=== PATIENT | male | born 1995 | race Two or more races ===

== ENCOUNTER 2025-05-20 03:11 | Emergency (ER) | payer BC, SELFPAY ==
[2025-05-20 03:23] VITALS: BP 130/73; BP 134/90; PULSE 71; PULSE 72; RESP 16; TEMP 36.2; O2SAT 96; O2SAT 99; BMI 29.0
[2025-05-20 03:44] VITALS: BP 121/74; PULSE 65
--- OUTSIDE RECORDS SUMMARY | 2025-05-20 03:58 | XMS_ITS | Clinical Summary ---
Author Organization [facility] Address [address] [place] [address] Care Team Providers Care Shovel Handle Assembler Name Role Phone Unavailable Primary Care Provider Unavailabl e Medications No known medications Active Problems No known active problems Immunizations Name Administration Dates Next Due Tdap 12/15/2023 Social History Tobacco Use Types Packs/Day Years Used Date Smoking Tobacco: Never Assessed Sex and Gender Information Value Date Recorded Sex Assigned at Male 12/15/2023 10:55 AM EST Gender Identity Male 12/15/2023 10:55 AM EST Sexual Orientation Not on file Job Start Date Occupation Industry Not on file Not on file Not on file Last Filed Vital Signs Vital Sign Reading Time Taken Comments Blood Pressure 151/93 12/15/2023 10:24 AM EST Pulse 68 12/15/2023 10:24 AM EST Temperature 36.9 C (98.4 F) 12/15/2023 10:24 AM EST Respiratory Rate 18 12/15/2023 10:24 AM EST Oxygen Saturation 97% 12/15/2023 10:24 AM EST Inhaled Oxygen Concentration - - Weight 79.4 kg (175 lb) 12/15/2023 10:24 AM EST Height 170.2 cm (5' 7 ) 12/15/2023 10:24 AM EST Body Mass Index 27.41 12/15/2023 10:24 AM EST Plan of Treatment Not on file Advance Directives For more information, please contact: [phone] Documents on File Type Date Recorded Patient Packager Hand Expl anation Advance Directive and Living Will 12/15/2023 10:06 AM
--- OUTSIDE RECORDS SUMMARY | 2025-05-20 03:58 | XMS_ITS ---
Author Name [facility] Organization Unknown Results Test Name/Text Value Interpretation Date Range Source URINE Protein, POC Trace Abnormal 05/29/2024 - [facility] URINE Spec Riley, POC >1.029 Normal 05/29/2024 1.003 - 1.03 [facility] URINE Blood, POC Negative Normal 05/29/2024 - [facility] URINE Bilirubin, POC Small Abnormal 05/29/2024 - [facility] URINE Leuk Esterase, POC Negative Normal 05/29/2024 - [facility] URINE Glucose, POC Negative Normal 05/29/2024 - [facility] URINE Ketones, POC >160.0 mg/dL Abnormal 05/29/2024 - [facility] URINE Color, POC Yellow Normal 05/29/2024 [facility] URINE pH, POC 5.5 Normal 05/29/2024 5 - 8 [facility] URINE Nitrite, POC Negative [facility] Clarity, POC Clear Normal 05/29/2024 [facility] Urobilinogen, URINE POC 0.2 mg/dL Normal 05/29/2024 0.2 - 1 [facility] CK SerPl-cCnc 329.0 U/L Above high normal 05/29/2024 24 - 20 4 [facility] BUN SerPl-mCnc 25.0 mg/dL Above high normal 05/29/2024 8 - 2 1 [facility] Sodium SerPl-sCnc 141.0 mmol/L Normal 05/29/2024 136 - 14 5 [facility] Anion Gap Bld-sCnc 12.0 Normal 05/29/2024 7 - 17 [facility] Potassium SerPl-sCnc 4.5 mmol/L Normal 05/29/2024 3.4 - 5 .3 [facility] Glucose SerPl-mCnc 103.0 mg/dL Above high normal 05/29/2024 65 - 99 [facility] CO2 SerPl-sCnc 26.0 mmol/L Normal 05/29/2024 22 - 33 [facility] Creat SerPl-mCnc 0.9 mg/dL Normal 05/29/2024 0.5 - 1.3 [facility] Chloride SerPl-sCnc 103.0 mmol/L Normal 05/29/2024 98 - 1 07 [facility] BUN/Creat SerPl 28.0 Ratio Above high normal 05/29/2024 10 - 25 [facility] Calcium SerPl-mCnc 10.4 mg/dL Normal 05/29/2024 8.7 - 10. 5 [facility] GFR/BSA.pred SerPlBld NKB-LVM-UdVBtq >90.0 Normal 05/29/2024 59 - [facility] WBC num Bld Auto 14.8 Thou/uL Above high normal 05/29/2024 4 - 11 [facility] MCH RBC Qn Auto 30.5 pg Normal 05/29/2024 26 - [address] Monocytes num Bld Auto 0.72 Thou/uL Normal 05/29/2024 0.2 - 1.5 [facility] Monocytes/leuk NFr Bld Auto 4.9 % Normal 05/29/2024 [facility] RBC num Bld Auto 4.89 Mil/uL Normal 05/29/2024 4.5 - 6.2 [facility] Imm Granulocytes num Bld Auto 0.06 Thou/uL Normal 05/29/2024 0 - 0.1 [facility] Neutrophils num Bld Auto 11.75 Thou/uL Above high normal 05/29/2024 2 - 7.5 [facility] Lymphocytes num Bld Auto 2.18 Thou/uL Normal 05/29/2024 1.5 - 4.5 [facility] Eosinophil/leuk NFr Bld Auto 0.3 % Normal 05/29/2024 [facility] MCHC RBC Auto-mCnc 33.2 g/dL Normal 05/29/2024 30 - 36 [facility] Eosinophil num Bld Auto 0.05 Thou/uL Normal 05/29/2024 0 - 0.7 [facility] MCV RBC Auto 92.0 fL Normal 05/29/2024 80 - 100 [facility] Hct VFr Bld Auto 44.9 % Normal 05/29/2024 39 - 54 [facility] Basophils num Bld Auto 0.04 Thou/uL Normal 05/29/2024 0 - 0.2 [facility] Platelet num Bld Auto 274.0 Thou/uL Normal 05/29/2024 150 - 450 [facility] PMV Bld Auto 10.5 fL Normal 05/29/2024 7.5 - 12.5 [facility] Neutrophils/leuk NFr Bld Auto 79.4 % Normal 05/29/2024 [facility] RDW RBC Auto-Rto 13.4 % Normal 05/29/2024 11.5 - 14.5 [facility] Basophils/leuk NFr Bld Auto 0.3 % Normal 05/29/2024 [facility] Lymphocytes/leuk NFr Bld Auto 14.7 % Normal 05/29/2024 [facility] Imm Granulocytes/leuk NFr Bld Auto 0.4 % Normal 05/29/2024 [facility] Hgb Bld-mCnc 14.9 g/dL Normal 05/29/2024 13 - 17.7 [facility] History of Medication Use Medication Directions Dispensed Refills Start Date End Date Stat lidocaine (PF) 100 mg/5 mL (2 %) injection syringe Take 3 mL by injection route. 03/20/2025 active triamcinolone acetonide 40 mg/mL suspension for injection Take 60 mg by injection route. 03/20/2025 active tobramycin (Tobrex) 0.3 % ophthalmic solution One drop four times a day to the affected eye. Stop for increased eye irritation 06/03/2023 active lidocaine (PF) 100 mg/5 mL (2 %) injection syringe active triamcinolone acetonide 40 mg/mL suspension for injection active acyclovir 400 mg tablet TAKE 1 TABLET BY MOUTH ONCE DAILY FOR 10 DAYS active dextroamphetamine-amph etamine ER 20 mg 24hr capsule,extend release TAKE 1 CAPSULE BY MOUTH IN THE MORNING FOR 30 DAYS active doxycycline hyclate 100 mg capsule TAKE 1 CAPSULE BY MOUTH TWICE DAILY active ibuprofen 800 mg tablet TAKE 1 TABLET BY MOUTH THREE TIMES DAILY WITH FOOD NEEDED FOR PAIN active naproxen 500 mg tablet TAKE 1 TABLET BY MOUTH TWICE DAILY NEEDED FOR PAIN. TAKE WITH FOOD OR MILK active sulfamethoxazole 800 mg-trimethoprim 160 mg tablet TAKE 1 TABLET BY MOUTH EVERY 12 HOURS FOR 10 DAYS. active amphetamine-dextroamph etamine (ADDERALL XR) 10 MG 24 hr capsule Take 1 capsule (10 mg total) by mouth every morning. Max Daily Amount: 10 mg active Multiple Vitamin (MULTIVITAMIN) capsule Take 1 capsule by mouth daily. active Allergies Allergen Reaction Severity Comment Documented Date Source Statu s [employer]LLF[employer] HIVES 06/08/2020 CCT active NO METAL ALLERGY CTOSP Problems Problem Status Onset Date Problem Type Date of Resolution Source Closed fracture of fifth metatarsal bone active 2025-04-21 ProblemAct ENS_AO NECT Impingement syndrome of left shoulder region active 2025-03-18 ProblemAct [facility]ONECT Pain in left foot active 2025-05-10 ProblemAct [facility] Arthritis of left acromioclavicular joint active 2025-04-25 ProblemAct [facility] Tendinitis of left rotator cuff active 2025-03-19 ProblemAct [facility] Pain of left shoulder region active 2025-04-21 ProblemAct [facility] Cellulitis of left hand (disorder) active 2024-09-24 ProblemAct [facility]OSP Cellulitis of finger of left hand active EncounterDiagnosisAct CCT Encounters Encounter Type Encounter Reason Primary Diagnosis Location Date Ambulatory [facility] 05/16/2025 Ambulatory [facility] 05/13/2025 Ambulatory [facility] 05/12/2025 Ambulatory [facility] 04/28/2025 Ambulatory [facility] 04/25/2025 Ambulatory [facility] 04/22/2025 Ambulatory [facility] 04/21/2025 Emergency LANDED ON OUTSIDE OF LEFT FOOT/PAIN/SWELLING LANDED ON OUTSIDE OF LEFT FOOT/PAIN/SWELLING [facility] 04/16/2025 Ambulatory [facility] 04/11/2025 Ambulatory [facility] 04/01/2025 Ambulatory [facility] 03/20/2025 Ambulatory [facility] 03/17/2025 Ambulatory [facility] 03/17/2025 Ambulatory [facility] 03/17/2025 Ambulatory [facility] 03/17/2025 Ambulatory [facility] 03/14/2025 Ambulatory [facility] 03/14/2025 Ambulatory [facility] 03/04/2025 Ambulatory [facility] 03/04/2025 Ambulatory Cellulitis of left upper limb Cellulitis of left upper limb [facility] 10/01/2024 Ambulatory Pain in left shoulder Pain in le ft shoulder [facility] 09/24/2024 Emergency LEFT INDEX FINGER PAIN SWELLING LEFT INDEX FINGER PAIN SWELLING [facility] 09/24/2024 Ambulatory Hand Swelling Hand Swelling [facility] 09/21/2024 Ambulatory [facility] 08/28/2024 Ambulatory Encounter for screening for infections with a predominantly sexual mode of transmission Encounter for screening for infections with a predominantly sexual mode of transmission [facility] 07/22/2024 Emergency Heat exhaustion, unspecified, initial encounter Heat exhaustion, unspecified, initial encounter [facility] 05/28/2024 Emergency Laceration without foreign body of other part of head, initial encounter Laceration without foreign body of other part of head, initial encounter [facility] 12/15/2023 Emergency Injury of conjunctiv a and corneal abrasion without foreign body, right eye, initial encounter Injury of conjunctiva and corneal abrasion without foreign body, right eye, initial encounter [facility] 06/03/2023 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 Emergency Foreign body in ear, unspecified ear, initial encounter [facility] 05/20/2022 Ambulatory Contact with and (suspected) exposure to covid-19 [facility] 11/16/2021 Emergency Crushing injury of left index finger, initial encounter [facility] 09/18/2021 Care Team Organization Name Specialty Phone Email Start Date End Da te [facility] provided,No Primary Care 10/28/2024 [facility] No provided Primary Care 09/24/2024 [facility] 08/28/2024 [facility] 2023 [facility] 12/15/2023 [facility] 09/15/2023 024 [facility] 08/05/2023 024 [facility] VINCENT MEDINA Primary Care 11/18/2022 [facility] PCP,No Primary Care 05/21/2022 01/29/2025 [facility] Vincent Medina Primary Care 09/18/2021 [facility] NO PCP Primary Care 09/18/2021 05/20/2022
--- OUTSIDE RECORDS SUMMARY | 2025-05-20 03:59 | XMS_ITS | Clinical Summary ---
Author Organization [facility] Address [address] [place] [address] Care Team Providers Care Direct Response Consultant Name Role Phone Vincent Palomino MD Primary Care Provider [phone] Allergies Active Allergy Reactions Criticality Noted Date Comments Shellfish-Derived Products Hives Medium 0 Medications Multiple Vitamin (MULTIVITAMIN) capsule Take 1 capsule by mouth daily. Active azithromycin (ZITHROMAX) 500 MG tabletIndicatio ns:Chlamydia Take 2 tablets (1,000 mg total) by mouth once. Please take the medication as soon as possible. 2 tablet 0 Active amphetamine-dex troamphetamine (ADDERALL XR) 10 MG 24 hr capsule Take 1 capsule (10 mg total) by mouth every morning. Max Daily Amount: 10 mg Active tobramycin (Tobrex) 0.3 % ophthalmic solution One drop four times a day to the affected eye. Stop for increased eye irritation 10 mL 3 Active Active Problems No known active problems Family History Medical History Relation Name Comments No Known Problems Father Relation Name Status Comments Father Social History Tobacco Use Types Packs/Day Years Used Date Smoking Tobacco: Some Days Cigarettes Last attempted to quit: 01/08/2020 Smokeless Tobacco: Never Tobacco Cessation:Ready to Q uit: Not Asked; Counseling Given: Not Answered Alcohol Use Standard Drinks/Week Comments Yes 1 (1 standard drink = 0.6 oz pur e alcohol) Sex and Gender Information Value Date Recorded Sex Assigned at Male 06/03/2023 8:32 PM EDT Legal Sex Male 2:38 PM EDT Gender Identity Male 06/03/2023 8:32 PM EDT Sexual Orientation Choose not to disclose 2022 8:33 PM EDT Last Filed Vital Signs Vital Sign Reading Time Taken Comments Blood Pressure 134/78 09/21/2024 2:06 PM EST Pulse 97 09/21/2024 2:06 PM EST Temperature 36.7 C (98 F) 09/21/2024 2:06 PM EST Respiratory Rate 18 07/22/2024 11:30 AM EDT Oxygen Saturation 97% 09/21/2024 2:06 PM EST Inhaled Oxygen Concentration - - Weight 77.1 kg (170 lb) 07/22/2024 11:30 AM EDT Height 170.2 cm (5' 7 ) 07/22/2024 11:30 AM EDT Body Mass Index 26.63 07/22/2024 11:30 AM EDT Plan of Treatment Health Maintenance Due Date Last Done Comments DTaP/Tdap/Td Vaccines (1 - Tdap) 2013 Hepatitis B Vaccines (1 of 3 - 19+ 3-dose series) 2013 Pneumococcal Vaccine: Pediatric (0-5 Years) and At-Risk Patients (6 to 49 Years) (1 of 2 - PCV) 2013 COVID-19 Vaccine ( - 2023-2 5 season) 2024 Influenza Vaccine 06/13/2025 HIV Screening Completed 07/22/2024, 11/17/2022, 01/11/2017 Hepatitis C Virus Screening Completed 07/2024, 01/11/2017 HPV Vaccines Aged Out No longer eligi ble based on patient's age to complete this topic Procedures Procedure Name Priority Date/Time Associated Diagnosis Comments HIV 1/2 AG/AB CMIA REFLEX TO CONFIRMATION Routine 07/22/2024 2:58 PM EDT HEPATITIS PANEL, GENERAL Routine 07/22/2024 2:58 PM EDT from Last 3 Months or Most Recently Relevant to Health Maintenance Results * (ABNORMAL) HEPATITIS PANEL, GENERAL (07/22/2024 2:58 PM EDT) Hepatitis A Ab, Total NON-REACT SURESH NON-REACT SURESH [employer] Comment: For additional information, please refer to http://education.Sendmebox/faq/OSU718 (This link is being provided for informational/ educational purposes only.) Hepatitis B Surface Antibody REACTIVE( A) NON-REACT SURESH [employer] Hepatitis B Surface Ag Screen NON-REACT SURESH NON-REACT SURESH [employer] Comment: For additional information, please refer to http://Contract Cloud/faq/AVM523 (This link is being provided for informational/ educational purposes only.) Hepatitis B Core Antibody Total NON-REACT SURESH NON-REACT SURESH [employer] Comment: For additional information, please refer to http://CloudRunner I/O.Sendmebox/faq/UOW560 (This link is being provided for informational/ educational purposes only.) Hepatitis C Antibody NON-REACT SURESH NON-REACT SURESH [employer] Comment: HCV antibody was non-reactive. There is no laboratory evidence of HCV infection. In most cases, no further action is required. However, if recent HCV exposure is suspected, a test for HCV RNA (test code 50486) is suggested. For additional information please refer to http://Contract Cloud/faq/IJC40g2 (This link is being provided for informational/ educational purposes only.) 07/22/2024 2:58 PM EDT 07/22/2024 2:59 PM EDT [facility] BLOOD ORDERABLES Final R esult Performing Organization Address City/State/[facility] Co de Phone Number [employer] [address] [place] [phone] * HIV 1/2 Ag/Ab CMIA Reflex to Confirmation (07/22/2024 2:58 PM EDT) HIV Ag/Ab, 4th Gen NON-REACT SURESH NON-REACT [facility] Comment: HIV-1 antigen and HIV-1/HIV-2 antibodies were not detected. There is no laboratory evidence of HIV infection. PLEASE NOTE: This information has been disclosed to you from records whose confidentiality may be protected by state law. If your state requires such protection, then the state law prohibits you from making any further disclosure of the information without the specific written consent of the person to whom it pertains, or as otherwise permitted by law. A general authorization for the release of medical or other information is NOT sufficient for this purpose. For additional information please refer to http://education.Sendmebox/faq/TRQ791 (This link is being provided for informational/ educational purposes only.) The performance of this assay has not been clinically validated in patients less than 2 years old. 07/22/2024 2:58 PM EDT 07/22/2024 2:59 PM EDT [facility] BLOOD ORDERABLES Final R esult [employer] [address] [place] [phone] from Last 3 Months or Most Recently Relevant to Health Maintenance Insurance - [facility] BLUE CROSS OUT OF [facility] BLUE CROSS OUT OF [facility] Care Teams Direct Response Consultant Relationship Specialty Start Date End Date Vincent Palomino MD PCP - General Urology 05/20/22
--- NOTE | 2025-05-20 04:21 | PC.NURSE ---
Pt states he is feeling better at this time. Swelling in face appears improved.
--- NOTE | 2025-05-20 04:27 | PC.NURSE ---
pt reports feeling much better after being medicated.
--- NOTE | 2025-05-20 05:26 | ED_ITS ---
HPI - General Adult General Chief complaint: Allergic Reaction Stated complaint: allergic to shrimp ate shrimp had rxn benadryl adm Time Seen by Provider: 05/20/25 03:38 Source: patient Limitations: no limitations History of Present Illness ED Provider: Kenya Currie PA-C HPI narrative: 30-year-old male presents with a allergic reaction. Patient states he ate shrimp earlier this evening. He began to develop facial swelling including the lips. Patient states he feels as if his throat is scratchy. Denies dysphagia, tongue swelling, urticaria, chest pain, shortness of breath or wheezing. Related Data Previous Rx's ?Medication ?Instructions ?Recorded epinephrine 0.3 mg/0.3 mL 0.3 mg (0.3 mL) IM Q10M PRN 05/20/25 injection, auto-injector (EpiPen hypersensitivity reac tion #2 ea 2-Manish) methylprednisolone 4 mg tablets in 4 mg PO QAM #21 ea 05/20/25 a dose pack (Medrol (Manish)) Allergies Allergy/AdvReac Type Severity Reaction Status Date / Time shellfish derived (shellfish) Allergy Itching Verified 05/20/25 03:27 Review of Systems Review of Systems: Yes all other systems are reviewed and are negative Constitutional: Constitutional: Denies fatigue and Denies fever(s) ENT: Denies dysphagia, Denies hoarseness, Reports lip swelling, Reports sore throat, Denies throat swelling and Denies tongue swelling Cardiovascular: Cardiovascular: Denies chest pain and Denies dyspnea Respiratory: Respiratory: Denies cough, Denies dyspnea, Denies stridor and Denies wheezing Gastrointestinal: Gastrointestinal: Denies dysphagia, Denies nausea and Denies vomiting Endocrine: Endocrine: Denies fatigue Allergic/Immunologic: Allergic/Immunologic: Reports lip swelling, Denies throat swelling, Denies tongue swelling and Denies wheezing PMFSH Past Medical History Attestation statement: The following information was validated with the patient. Social History Social History Smoked in Last 30 Days: No Use of substances other than those prescribed or required for medical reasons: No Advance Directives: No Advance Directives Information Provided: Yes Physical Exam ED Vital Signs: Vital Signs - 24 hr 05/20/25 03:23 05/20/25 03:44 Temperature 97.2 F Pulse Rate 72 65 Respiratory Rate 16 Blood Pressure 130/73 121/74 Pulse Oximetry 96 Oxygen Delivery Method Room Air BMI result Body Mass Index 29.0 Const Other: Alert Orientation/consciousness: patient oriented x3 HENMT Other: Subtle facial swelling, angioedema of the lips, the tongue is normal in size, Resp Other: No stridor, no wheezing, not tachypneic Cardio Other: Normal peripheral perfusion Skin Other: Warm dry no rash no urticaria Neuro General: patient oriented x3, gait normal, no focal motor deficits and CN's II- XI intact bilaterally Psych Other: Cooperative Course Reevaluation(s) Reevaluation #1: The patient has been here over 3 hours, he has not had progression of reaction, we will discharge home with an EpiPen, steroid taper Medications Administered Discontinued Medications Generic Name Dose Route Start Last Admin Trade Name Freq PRN Reason Stop Dose Admin Epinephrine 0.3 mg 05/20/25 03:38 05/20/25 03:44 Epinephrine 1 Mg/Ml Vial IM 05/20/25 03:39 0.3 mg STAT STA Administration Famotidine 20 mg 05/20/25 03:38 05/20/25 03:50 Famotidine/Pf 20 Mg/2 Ml Vial IVPUSH 05/20/25 03:39 20 mg ONCE ONE Administration Sodium Chloride 1,000 mls @ 999 mls/hr 05/20/25 03:45 05/20/25 05:42 Ns IV 05/20/25 04:45 Infused .Q1H1M [facility] Infusion Methylprednisolone Sodium Succinate 125 mg 05/20/25 03:38 05/20/25 03:45 Methylprednisolone Sod Succ 125 Mg/2 Ml Vial IVPUSH 05/20/25 03:39 125 mg ONCE ONE Administration Medical Decision Making Medical Decision Making MDM Narrative: 30-year-old male presents with a allergic reaction. Patient states he ate shrimp earlier this evening. He began to develop facial swelling including the lips. Patient states he feels as if his throat is scratchy. Denies dysphagia, tongue swelling, urticaria, chest pain, shortness of breath or wheezing. No chronic issues History: Per patient I have considered the following differential diagnoses: Angioedema, allergic reaction, anaphylaxis Plan: The patient is developing angioedema, we will administer epinephrine. We will also give Solu-Medrol and famotidine IV fluid. The patient received IV Benadryl pre arrival. We will continue to monitor for progression of reaction. Discharge Plan Discharge Clinical Impression: Allergic reaction, Angioedema Patient Disposition: Home, Self-Care Instructions: Angioedema (ED), General Allergic Reaction (ED) Additional Instructions: You were treated for an allergic reaction. See home care instructions. Take the steroid taper as directed. You are also being discharged with an EpiPen. You should familiarize with a its use. If you develop a similar reaction, immediately administer yourself the EpiPen, then seek medical attention at an emergency room. Prescriptions: New methylprednisolone [Medrol (Manish)] 4 mg tablets,dose pack 4 mg PO QAM Qty: 21 0RF Rx Instructions: Take per package instructions epinephrine [EpiPen 2-Manish] 0.3 mg/0.3 mL auto-injector 0.3 mg IM Q10M PRN (Reason: hypersensitivity reaction) Qty: 2 0RF Rx Instructions: for 2 doses Interventions: ED Discharge Assessment Last Done: 05/20/25 05:51 Discharge Date/Time: 05/20/25 05:52 Print Language: Armenian
[2025-05-20 05:41] VITALS: BP 122/64; PULSE 74; RESP 11; TEMP 36.4; O2SAT 97
--- NOTE | 2025-05-20 05:41 | PC.NURSE ---
reviewed discharge instructions with pt. pt verbalized understanding, no sign of respiratory distress upon discharge, pt able to speak in full sentences.
[2025-05-20 05:51] VITALS: BP 122/64; PULSE 74; RESP 11; TEMP 36.4; O2SAT 97
== END 2025-05-20 05:52 | disposition home or self-care (01) ==
PROVIDERS: Emergency Provider Emergency Medicine
DX: T78.1XXA Other adverse food reactions, not elsewhere classified, initial encounter (principal); T78.3XXA Angioneurotic edema, initial encounter; X58.XXXA Exposure to other specified factors, initial encounter
CPT/HCPCS: 96361; 96372; 96374; 96375; 99284; J0165; J1308; J2919